=== PATIENT | female | born 1995 | race Caucasian/White ===

== ENCOUNTER 2017-11-10 02:49 | Emergency (ER) | payer OTHER ==
[~2017-11-10] VITALS: Ht 254 cm; Wt 54.0 kg
[2017-11-10] MEDS ORDERED: SINGULAIR 10MG10 MG PO (04:37)
[2017-11-10] MEDS ORDERED: ALBUTEROL2.5 MG/3 M IH (04:37)
[2017-11-10] MEDS ORDERED: ZYNCOF 20-400120 ML PO (04:37)
[2017-11-10] MEDS ORDERED: QVAR8.7 G1 IH (04:37)
== END 2017-11-10 04:44 | disposition home or self-care (01) ==
LOC: ER 02:49
DX: J45.998 Other asthma (principal); R06.02 Shortness of breath

== ENCOUNTER 2018-03-16 19:58 | Emergency (ER) | payer OTHER ==
[~2018-03-16] VITALS: Ht 162.6 cm; Wt 49.9 kg
[~2018-03-16 19:58] MED LIST: ALBUTEROL2.5 MG/3 M IH; QVAR8.7 G1 IH; SINGULAIR 10MG10 MG PO; ZYNCOF 20-400120 ML PO
== END 2018-03-16 23:32 | disposition home or self-care (01) ==
LOC: ER 19:58
DX: K13.79 Other lesions of oral mucosa (principal)

== ENCOUNTER 2018-08-08 11:34 | Emergency (ER) | payer OTHER ==
[~2018-08-08] VITALS: Ht 162.6 cm; Wt 59.0 kg
== END 2018-08-08 16:30 | disposition home or self-care (01) ==
LOC: ER 11:34
DX: K52.9 Noninfective gastroenteritis and colitis, unspecified (principal)

== ENCOUNTER 2018-08-15 11:02 | Emergency (ER) | payer OTHER ==
[~2018-08-15] VITALS: Ht 162.6 cm; Wt 58.5 kg
== END 2018-08-15 11:45 | disposition home or self-care (01) ==
LOC: ER 11:02
DX: T78.49XA Other allergy, initial encounter (principal); R21 Rash and other nonspecific skin eruption

== ENCOUNTER 2018-08-29 18:08 | Emergency (ER) | payer OTHER ==
[~2018-08-29] VITALS: Ht 162.6 cm; Wt 58.5 kg
== END 2018-08-29 20:50 | disposition home or self-care (01) ==
LOC: ER 18:08
DX: T78.1XXA Other adverse food reactions, not elsewhere classified, initial encounter (principal); R21 Rash and other nonspecific skin eruption; R11.11 Vomiting without nausea

== ENCOUNTER 2018-11-03 09:14 | Emergency (ER) | payer OTHER ==
[~2018-11-03] VITALS: Ht 162.6 cm; Wt 59.0 kg
== END 2018-11-03 13:31 | disposition home or self-care (01) ==
LOC: ER 09:14
DX: H10.12 Acute atopic conjunctivitis, left eye (principal)